=== PATIENT | male | born 1975 | race Caucasian/White ===

== ENCOUNTER 2024-08-30 19:45 | Emergency (ER) | payer BC ==
[2024-08-30] MEDS ORDERED: Famotidine 20 MG TAB ONE (20:02)
[2024-08-30] MEDS ORDERED: Dexamethasone 10 MG/ML VIAL ONE (20:02)
[2024-08-30] MEDS ORDERED: Ondansetron ODT 4 MG TAB ONE (20:20)
[2024-08-30] MEDS ORDERED: diphenhydrAMINE 25 MG CAP ONE (20:20)
== END 2024-08-30 22:01 | disposition home or self-care (01) ==
LOC: ERS 19:45
DX: L50.0 Allergic urticaria (principal); I10 Essential (primary) hypertension
CPT/HCPCS: 99282; J1100; Q0162